=== PATIENT | male | born 1970 | race Caucasian/White ===

== ENCOUNTER 2024-08-08 19:06 | Emergency (ER) | payer OTHER, SELFPAY ==
--- NOTE | ~2024-08-08 | CT_ITS ---
CT of the Abdomen and Pelvis: Indication: Left inguinal hernia Technique: 2.5 mm axial scans were obtained through the abdomen and pelvis following intravenous adm inistration of 100 cc of Omnipaque 350. Dose reduction technique was used on this scan by utilizing a utomated exposure control and iterative reconstruction technique. The dose-length product (DLP) was 3 80.85 mGy-cm. Findings: Scans through the lung bases are unremarkable. The liver, spleen, pancreas, adrenals and kidneys are within normal limits. Calcified gallstone prese nt. No evidence of aortic aneurysm. No lymphadenopathy. Large left inguinal hernia contains the proximal sigmoid colon. No bowel obstruction or bowel wall th ickening. Images through the pelvis were performed. Urinary bladder unremarkable. No pelvic mass seen. No ascit es. Impression: Large left inguinal hernia contains the proximal sigmoid colon. No bowel obstruction or bowel wall th ickening. Cholelithiasis. Reviewed, dictated and finalized at location . Impression: Large left inguinal hernia contains the proximal sigmoid colon. No bowel obstru ction or bowel wall thickening. Cholelithiasis.
[2024-08-08 19:22] VITALS: BP 181/117; PULSE 116; RESP 18; TEMP 37.7; O2SAT 98
[2024-08-08 22:11] VITALS: BP 188/124; PULSE 110; TEMP 37.3; O2SAT 99
--- NOTE | 2024-08-08 23:21 | ED_ITS ---
HPI - Male Genitourinary General Chief complaint: Urogenital-Male Stated complaint: Left groin hernia pain x 1.5 hours Time Seen by Provider: 08/08/24 23:04 History of Present Illness HPI Narrative: 54-year-old otherwise healthy male presenting to the emergency department for concerns of left hernia. Patient states he has been having hernia for last several months that has been intermittent in nature and sometimes bulges out with increased intra-abdominal or thoracic pressure and then goes down on its own without significant manipulation or assistance. He states that for last several hours she has noticed that the hernia is at its normal size but has not been able to be reduced and now he is having significant pain in his left groin. No testicular pain or swelling, no difficulty urinating, no difficulty defecating. Normal bowel movements without any nausea, vomiting, fever, chills. No chest pain shortness a breath. He is acutely uncomfortable and has not tried anything for pain prior to arrival. No history of inguinal hernia repair surgeries in the abdomen before. Related Data Allergies Allergy/AdvReac Type Severity Reaction Status Date / Time No Known Allergies Allergy Verified 08/08/24 19:08 Review of Systems 2 Review of Systems: As reviewed above in HPI Exam 2 Narrative: GENERAL: [Well-appearing, well-nourished, and in no acute distress.] HEAD: [Normocephalic, atraumatic.] EYES: [PERRLA and EOMI.] ENT: Nares clear, no rhinorrhea or epistaxis. Mucous membranes moist. NECK: Supple. CHEST: [Clear to auscultation. No respiratory distress.] HEART: [Regular rate and rhythm]. No murmur heard. [Normal peripheral pulses.] ABDOMEN: Soft and nondistended abdomen but the left inguinal region has a large hernia that is soft but tender to palpation, no overlying skin changes, ulcerations, redness or blue discoloration. Palpable hernia defect in the inguinal canal. No testicular pain or swelling, no penile pain or swelling, [No rigidity or guarding] EXTREMITIES: Normal range of motion. [No edema.] SKIN: Warm, dry, no rash. NEURO: [No focal deficits]. Alert and oriented [x3.] PSYCH: [Normal mood and affect.] Course Vital Signs Vital signs: Vital Signs Temperature 37.7 C H 08/08/24 19:22 Pulse Rate 116 H 08/08/24 19:22 Respiratory Rate 18 08/08/24 19:22 Blood Pressure 181/117 H 08/08/24 19:22 Pulse Oximetry 98 08/08/24 19:22 Oxygen Delivery Room Air 08/08/24 19:22 Temperature 37.3 C 08/08/24 22:11 Pulse Rate 71 08/09/24 01:15 Respiratory Rate 18 08/09/24 01:15 Blood Pressure 153/90 H 08/09/24 01:15 Pulse Oximetry 100 08/09/24 01:15 Oxygen Delivery Room Air 08/08/24 19:22 Procedures Other Procedure Procedure 1: Other Procedure: Procedure: Inguinal hernia reduction Indication: Incarcerated left inguinal hernia Consent granted verbally. No procedural sedation required. Procedure note: Patient has a left-sided inguinal hernia requiring reduction given its incarcerated status. No overlying skin changes or laboratory assessment or CT evidence of strangulation. Patient was given 100 mcg of fentanyl in addition to 1 mg of Dilaudid as pretreatment for pain. Patient placed in Trendelenburg and manual reduction attempted of the left inguinal hernia with manipulation into and through the palpable left inguinal defect. After several minutes we had successful reduction of left inguinal hernia and complete resolution of his symptoms and pain. MDM - Male Genitourinary MDM Narrative Medical decision making narrative: 54-year-old male with no pertinent past medical history presenting to the emergency department for evaluation of left groin pain. He has been having intermittent reducible hernia there for last 2 months he states and normally notices it when he bends over or exerts himself. No history of hernia surgery repair or any intra-abdominal surgery before. On examination he has a soft and nondistended abdomen but the left inguinal region has a large hernia that is soft but tender to palpation, no overlying skin changes, ulcerations, redness or blue discoloration. Palpable hernia defect in the inguinal canal. No testicular pain or swelling, no penile pain or swelling. Considerations presently are for an incarcerated versus strangulated hernia, possibility of obstruction versus fat containing hernia. Will obtain laboratory studies including CBC, CMP, lipase, lactic acid as well as a CT scan of the abdomen pelvis with contrast. He was given Dilaudid and Zofran as well as a fluid bolus. Patient is uncomfortable and vital signs reflect this with some hypertension tachycardia. He is afebrile with normal oxygen. He will be re- evaluated after pain control medications and imaging. Patient CT scan result came back with a large left fat and sigmoid containing inguinal hernia without any evidence of dilatation or obstruction. There is some minimal fat stranding around the hernia sac but his laboratory studies reassuring, negative lactic acid, no significant leukocytosis. Normal kidney and hepatic function. His last vital signs normalized after a mg of Dilaudid. At this time we will attempt hernia reduction at bedside. He was given 100 mcg of fentanyl as pre treatment and tolerated the procedure well with successful reduction of the left inguinal hernia. He will follow-up with the provided general surgeon for outpatient evaluation of his hernia. Patient remained hemodynamically stable and all his symptoms have resolved. He is safe for discharge at this time. Medical Records Attestation: I reviewed the patient's medical records. Lab Data Attestation: I reviewed the patient's lab results. 08/08/24 23:35 08/08/24 23:35 Labs: Lab Results 08/08/24 08/09/24 Range/Units 23:35 00:47 WBC 11.1 H (4.5-10.0) K/mm3 RBC 4.32 L (4.6-6.20) M/mm3 Hgb 13.4 L (14.0-18.0) g/dL Hct 38.9 L (42.0-52.0) % MCV 90.0 (80-100) fl MCH 31.0 (26-34) pg MCHC 34.4 (32-36) g/dl RDW 14.4 (11.5-14.5) % Plt Count 268 (150-375) k/mm3 MPV 9.3 (7.4-10.4) fl Immature Gran % (Auto) 0.6 H (0-0.5) % Neut % (Auto) 70.3 (45.5-73.1) % Lymph % (Auto) 19.4 (18.3-44.2) % [place] % (Auto) 7.4 (2.6-8.5) % Eos % (Auto) 1.2 (0-4.4) % Baso % (Auto) 1.1 (0.2-1.2) % Lymph # (Auto) 2.15 (0.9-3.2) K/mm3 [place] # (Auto) 0.8 H (0.1-0.6) K/mm3 Eos # (Auto) 0.1 (0-0.3) K/mm3 Baso # (Auto) 0.1 (0.0-0.1) K/mm3 Abs Immat Gran (auto) 0.07 H (0.00-0.031) K/mm3 Absolute Neuts (auto) 7.8 H (1.3-6.7) K/mm3 Absolute Nucleated RBC 0.000 (0.0-0.012) K/mm3 Nucleated RBC % 0.0 (0.0-0.2) % Sodium 140 (137-145) mmol/L Potassium 4.6 (3.4-5.0) mmol/L Chloride 105 (98-107) mmol/L Carbon Dioxide 28 (22-30) mmol/L Anion Gap 7 (4-12) mmol/L BUN 17 (9-20) mg/dL Creatinine 0.85 (0.7-1.3) mg/dL Estim Creat Clear Calc 91 ml/min Estimated GFR > 60 (59 - ) Glucose 100 (65-110) mg/dL Lactic Acid 1.4 (0.7-2.0) mmol/L Calcium 9.7 (8.4-10.2) mg/dL Total Bilirubin 0.3 (0.2-1.3) mg/dL AST 29 (17-59) U/L ALT 18 (6-50) U/L Alkaline Phosphatase 77 (38-126) U/L Total Protein 9.0 H (6.3-8.2) g/dL Albumin 4.7 (3.5-5.1) g/dL Lipase 161 (23-300) U/L Urine Color Yellow (Yellow) Urine Appearance Clear (Clear) Urine pH 5.5 (5.0-9.0) Ur Specific [place] 1.034 (1.001-1.035) Urine Protein Negative (Negative) mg/dL Urine Glucose (UA) Negative (Negative) mg/dL Urine Ketones Negative (Negative) mg/dL Ur Blood (Man) Negative (Negative) Urine Nitrate Negative (Negative) Urine Bilirubin Negative (Negative) Urine Urobilinogen 0.2 (<2.0) mg/dL Leukocyte Esterase Rfl Negative (Negative) JOJO/UL Imaging Data Attestation: I personally reviewed and interpreted this imaging study as follows: My impression: large left fat and sigmoid containing inguinal hernia without any evidence of dilatation or obstruction. Discharge Plan Discharge Clinical Impression: Incarcerated left inguinal hernia, Inguinal hernia of left side without obstruction or gangrene Patient Disposition: Home Condition: Stable Instructions: Antibiotic Form, Inguinal Hernia (ED), Inguinal Hernia Repair (DC) Additional Instructions: We have successfully reduced your incarcerated left inguinal hernia but this is not definitive and you will need a general surgeon to evaluate on an outpatient basis for potential operative intervention for definitive care. Please contact the provided general surgeon. If you have any recurrence and inability to reduce the hernia please return to the emergency department. Patient Language: [place] Follow-up/Referrals: Traci Herndon MD [Physician] - 1 Week (Follow-up ER visit, inguinal hernia status post reduction) PHYSICIAN,[employer] [Primary Care Provider] - Time of Disposition: 05:00
[2024-08-08 23:40] LABS: Basophils Absolute Auto 0.1 K/mm3 (0.0-0.1); Basophils Percent Auto 1.1 % (0.2-1.2); Eosinophils Absolute Auto 0.1 K/mm3 (0-0.3); Eosinophils Percent Auto 1.2 % (0-4.4); Hematocrit 38.9 % (42.0-52.0); Hemoglobin 13.4 g/dL (14.0-18.0); Immature Granulocyte Absolute 0.07 K/mm3 (0.00-0.031); Immature Granulocyte Percent A 0.6 % (0-0.5); Lymphocytes Absolute Auto 2.15 K/mm3 (0.9-3.2); Lymphocytes Percent Auto 19.4 % (18.3-44.2); Mean Corpuscular HGB Conc 34.4 g/dl (32-36); Mean Platelet Volume 9.3 fl (7.4-10.4); Monocytes Absolute Auto 0.8 K/mm3 (0.1-0.6); Monocytes Percent Auto 7.4 % (2.6-8.5); Neutrophils Absolute Auto 7.8 K/mm3 (1.3-6.7); Neutrophils Percent Auto 70.3 % (45.5-73.1); Platelet Count Result 268 k/mm3 (150-375); Red Blood Count 4.32 M/mm3 (4.6-6.20); Red Cell Distribution Width 14.4 % (11.5-14.5); White Blood Count 11.1 K/mm3 (4.5-10.0)
[2024-08-08] MEDS: HYDROmorphone HCL INJ (*CRX) 2 MG/ML VIAL 1 MG IV PUSH (23:40)
[2024-08-08] MEDS: ONDANSETRON INJ 4 MG/2 ML VIAL IV PUSH (23:40)
[2024-08-08] MEDS: LACTATED RINGERS 1,000 ML 999 ML IV CONT (23:41)
[2024-08-08 23:46] VITALS: BP 169/89; PULSE 83; RESP 16; O2SAT 100
[2024-08-08 23:50] LABS: Lactic Acid Reflex 1.4 mmol/L (0.7-2.0)
[2024-08-08 23:51] LABS: Alanine Aminotransferase 18 U/L (6-50); Albumin Level 4.7 g/dL (3.5-5.1); Alkaline Phosphatase 77 U/L (38-126); Anion Gap 7 mmol/L (4-12); Aspartate Amino Transferase 29 U/L (17-59); Bilirubin,Total 0.3 mg/dL (0.2-1.3); Blood Urea Nitrogen 17 mg/dL (9-20); Calcium 9.7 mg/dL (8.4-10.2); Carbon Dioxide 28 mmol/L (22-30); Chloride 105 mmol/L (98-107); Estimated CRCL calculation 91 ml/min; Estimated Glomerular Filt Rate > 60; Glucose 100 mg/dL (65-110); Lipase 161 U/L (23-300); Potassium 4.6 mmol/L (3.4-5.0); Sodium 140 mmol/L (137-145)
[2024-08-09 01:05] LABS: Add Urine Microscopic? NO; Appearance Urine Clear (Clear); Bilirubin Urine Negative (Negative); Blood Urine Negative (Negative); Color Urine Yellow (Yellow); Glucose Urine UA Negative (Negative); Ketones Urine Negative (Negative); Leukocyte Esterase Ur Negative LEU/UL (Negative); Nitrate Urine Negative (Negative); Protein Urine Negative (Negative); Specific Grav Ur 1.034 (1.001-1.035); Urobilinogen Urine 0.2 mg/dL (<2.0); pH Urine 5.5 (5.0-9.0)
[2024-08-09 01:15] VITALS: BP 153/90; PULSE 71; RESP 18; O2SAT 100
[2024-08-09] MEDS: fentaNYL CITRATE INJ (*CRX) 100 MCG/2 ML VIAL IV PUSH (04:42)
== END 2024-08-09 05:24 | disposition home or self-care (01) ==
PROVIDERS: Emergency Provider Student in an Organized Health Care Education/Training Program
DX: K40.30 Unilateral inguinal hernia, with obstruction, without gangrene, not specified as recurrent (principal)
CPT/HCPCS: 36415; 74177; 80053; 81003; 83605; 83690; 85025; 96361; 96374; 96375; 99284; J1171; J2405; J3010; J7120; Q9967